=== PATIENT | male | born 1940 | race Caucasian/White ===

== ENCOUNTER 2021-03-07 09:00 | Outpatient (RCR) | payer MEDICARE, OTHER, SELFPAY | END 2021-03-07 10:11 | disposition home or self-care (01) | LOC: HO.PT 09:00 | PROVIDERS: PCP Internal Medicine; Visit Provider Orthopaedic Surgery Sports Medicine | DX: M17.12 Unilateral primary osteoarthritis, left knee (principal); M94.262 Chondromalacia, left knee | CPT/HCPCS: 97110; 97112; 97162; 97530 ==

== ENCOUNTER 2021-11-19 08:00 | Outpatient (RCR) | payer MEDICARE, OTHER, SELFPAY ==
[2021-09-20 08:07] VITALS: BP 138/63; PULSE 67
== END 2021-11-19 09:36 | disposition home or self-care (01) ==
LOC: HO.PT 08:00
PROVIDERS: PCP Internal Medicine; Visit Provider Orthopaedic Surgery
DX: Z96.652 Presence of left artificial knee joint (principal)
CPT/HCPCS: 97110; 97116; 97140; 97161; 97530

== ENCOUNTER 2022-04-09 08:00 | Outpatient (RCR) | payer MEDICARE, OTHER, SELFPAY ==
[2022-03-12 10:02] VITALS: BP 148/67; PULSE 71; O2SAT 96
== END 2022-04-09 08:48 | disposition home or self-care (01) ==
LOC: HO.PT 08:00
PROVIDERS: PCP Internal Medicine; Visit Provider Physician Assistant
DX: Z47.1 Aftercare following joint replacement surgery (principal); Z96.652 Presence of left artificial knee joint
CPT/HCPCS: 97110; 97140; 97162

== ENCOUNTER 2023-03-18 09:00 | Outpatient (RCR) | payer MEDICARE, OTHER, SELFPAY | END 2023-03-18 10:01 | disposition home or self-care (01) | LOC: HO.PT 09:00 | PROVIDERS: PCP Internal Medicine; Visit Provider Orthopaedic Surgery | DX: M16.0 Bilateral primary osteoarthritis of hip (principal) | CPT/HCPCS: 97110; 97161 ==

== ENCOUNTER 2023-06-13 08:00 | Outpatient (RCR) | payer MEDICARE, OTHER, SELFPAY | END 2023-07-15 08:23 | disposition home or self-care (01) | LOC: HO.PT 08:00 | PROVIDERS: PCP Internal Medicine; Visit Provider Orthopaedic Surgery | DX: Z96.641 Presence of right artificial hip joint (principal); Z98.890 Other specified postprocedural states | CPT/HCPCS: 97110; 97161; 97530; 97535 ==